=== PATIENT | male | born 1975 | race Hispanic/Latino ===

== ENCOUNTER 2019-09-21 17:20 | Emergency (ER) | payer OTHER, SELFPAY ==
[2019-09-21 17:30] VITALS: BP 155/88; PULSE 72; RESP 16; TEMP 36.3; O2SAT 100
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
== END 2019-09-21 18:24 | disposition home or self-care (01) ==
PROVIDERS: Emergency Provider Nurse Practitioner
DX: S05.02XA Injury of conjunctiva and corneal abrasion without foreign body, left eye, initial encounter (principal); X58.XXXA Exposure to other specified factors, initial encounter
CPT/HCPCS: 99203; A9270; G0463

== ENCOUNTER 2021-05-08 16:28 | Emergency (ER) | payer OTHER, SELFPAY ==
--- NOTE | ~2021-05-08 | US_ITS ---
US scrotum doppler INDICATION: Left testicular pain and swelling TECHNIQUE: Testicular sonogram utilizing grayscale and color Doppler FINDINGS: The testes are normal in size and appearance. No focal lesions are seen. The right testes measures 4.2 x 2.5 x 3.2 cm centimeters, and the left testis measures 4.7 x 2.8 x 3.5 cm cm. There is normal vascular flow to both testes. The right and left epididymides appear normal. There is no varicocele or hydrocele. IMPRESSION: 1. NORMAL TESTICULAR ULTRASOUND. Reviewed, dictated and finalized at location A.
[2021-05-08 17:06] VITALS: BP 136/95; PULSE 84; RESP 16; TEMP 37.1; O2SAT 97
--- NOTE | 2021-05-08 17:25 | ED.MALEGU ---
HPI - Male Genitourinary General Chief complaint: Urogenital-Male Stated complaint: enlarged testicle Time Seen by Provider: 05/08/21 17:14 Source: patient Mode of arrival: ambulatory Limitations: no limitations History of Present Illness HPI Narrative: Patient is a 45-year-old male complaining of left testicular swelling started last night. Patient denies any pain but states that when he palpates it he does have some mild pain. Patient denies any redness in the area. Patient denies any injury to the area. Patient denies any penile pain or discharge. Patient denies any urinary symptoms. Related Data Allergies Allergy/AdvReac Type Severity Reaction Status Date / Time Bumble Bee Allergy Anaphylactic Uncoded 05/26/12 11:55 Shock Review of Systems Review of Systems: All systems reviewed & are unremarkable except as noted in HPI and below Constitutional: Constitutional: Reports as per HPI Eyes: Eyes: Denies blurry vision, Denies change in vision and Denies loss of vision ENT: Denies dizziness, Denies ear discharge, Denies headache(s), Denies lip swelling, Denies epistaxis, Denies nasal congestion, Denies neck pain, Denies throat swelling and Denies tongue swelling Cardiovascular: Cardiovascular: Denies chest pain, Denies chest pain at rest, Denies chest pain with activity, Denies diaphoresis, Denies rapid heart rate, Denies edema, Denies irregular heart rhythm, Denies lightheadedness, Denies palpitations, Denies dyspnea and Denies dyspnea on exertion Respiratory: Respiratory: Denies chest congestion, Denies cough, Denies hemoptysis, Denies dyspnea and Denies dyspnea on exertion Gastrointestinal: Gastrointestinal: Denies abdominal pain, Denies melena, Denies hematochezia, Denies diarrhea, Denies nausea, Denies vomiting and Denies hematemesis Musculoskeletal: Musculoskeletal: Denies abnormal gait, Denies deformity, Denies joint swelling, Denies limited range of motion, Denies neck pain and Denies numbness Neurologic: Denies Abnormal speech present, Denies abnormal gait, Denies confusion, Denies dizziness, Denies headache(s), Denies focal weakness, Denies loss of vision, Denies numbness, Denies Other visual disturbances, Denies Sensory deficit (Neuro) and Denies weakness Psychiatric: Psychiatric: Denies confusion, Denies depression, Denies auditory hallucinations, Denies homicidal ideation and Denies suicidal ideation Endocrine: Endocrine: Denies cold intolerance, Denies excessive sweating, Denies fatigue, Denies heat intolerance and Denies palpitations Hematologic/Lymphatic: Hematologic/Lymphatic: Denies easy bleeding and Denies easy bruising Allergic/Immunologic: Allergic/Immunologic: Denies lip swelling, Denies throat swelling and Denies tongue swelling PMFSH Comments Past medical history: None Family history: None Social history: Non-smoker no EtOH or drug use Exam Const: General: cooperative, healthy appearing, comfortable, no acute distress, well developed, alert and awake; No confusion Orientation/consciousness: oriented to person, oriented to place, oriented to time, patient oriented x3 and No confusion Limitations: no limitations HENMT: Head: normal to inspection, normocephalic and atraumatic Ears: hearing grossly normal bilaterally, TM normal on the right and TM normal on the left General nose exam: Normal external nose present, Normal nares present and No nasal discharge present Face and sinus: normal facial exam Mouth: Yes Normal oral and palatal mucosa present, Yes lip normal, Yes tongue normal and Yes oropharynx normal Throat: posterior oropharynx normal, tonsils normal and uvula midline Eyes: General: appearance normal, both eyes and all related structures Pupils: Equal, round and reactive pupils present EOM: EOMs intact bilaterally Neck: Neck: normal visual inspection, full ROM, no lymphadenopathy and no meningeal signs Chest: Chest palpation & inspection: normal inspection of the chest Resp: Effort
[2021-05-08 20:02] LABS: Add Urine Microscopic? NO; Appearance Urine Clear (Clear); Bilirubin Urine Negative (Negative); Blood Urine Negative (Negative); Color Urine Yellow (Yellow); Glucose Urine UA Negative (Negative); Ketones Urine Negative (Negative); Leukocyte Esterase Ur Negative LEU/UL (Negative); Nitrate Urine Negative (Negative); Protein Urine Negative (Negative); Urobilinogen Urine Negative mg/dL (<2.0)
[2021-05-08 20:06] VITALS: BP 132/78; PULSE 78; RESP 18; O2SAT 99
== END 2021-05-08 20:09 | disposition home or self-care (01) ==
PROVIDERS: Emergency Provider Emergency Medicine
DX: N50.89 Other specified disorders of the male genital organs (principal); N50.812 Left testicular pain
CPT/HCPCS: 76870; 81003; 93976; 99284

== ENCOUNTER 2022-12-03 13:33 | Emergency (ER) | payer OTHER, SELFPAY ==
[2022-12-03 13:37] VITALS: BP 131/79; PULSE 81; RESP 18; TEMP 36.9; O2SAT 100
[2022-12-03 15:51] VITALS: BP 146/92; PULSE 73; RESP 15; TEMP 36.5; O2SAT 99
--- NOTE | 2022-12-03 17:22 | PC.NURSE ---
Pt to the intake desk and states that he is going to leave. Pt ambulated to the exit without difficulty
== END 2022-12-03 17:22 | disposition left against medical advice (07) ==
LOC: ANHED 17:27
DX: K62.5 Hemorrhage of anus and rectum (principal)
CPT/HCPCS: 99199

== ENCOUNTER 2025-06-09 19:03 | Emergency (ER) | payer OTHER, SELFPAY ==
--- NOTE | ~2025-06-09 | XR_ITS ---
EXAMINATION: XR hand LT min 3V DATE: 06/09/2025 19:47 INDICATION: Cough length, attention thumb and third digit. TECHNIQUE: 4 views were obtained. COMPARISON: None. FINDINGS: No acute fracture. No radiopaque foreign objects are seen. Soft tissue swelling of the thumb and around the middle phalanx of the third finger are noted. IMPRESSION: 1. No acute fracture. Soft tissue changes as described above. Reviewed, dictated and finalized at location T. [employer]IC[employer]
[2025-06-09 19:08] VITALS: BP 136/89; PULSE 83; RESP 18; TEMP 36.8; O2SAT 98
--- NOTE | 2025-06-09 19:30 | ED_ITS ---
HPI - Animal Bite General Chief Complaint: Animal Bite Stated Complaint: dog bite - left hand Time Seen by Provider: 06/09/25 19:16 History of Present Illness HPI narrative: Patient is a 49-year-old male who presents to the ER after sustaining a dog bite to his left hand. He reports the incident happened approximately 30 minutes prior to arrival. Patient reports animal control is involved, they are going to test the dog and get back to patient regarding results. He is unsure when he had his last tetanus vaccine. Patient denies any other medical history relevant to this ER visit. He denies any decreased range of motion, purulence drainage from the site, or wrist pain. Related Data Allergies Allergy/AdvReac Type Severity Reaction Status Date / Time Bumble Bee Allergy Anaphylactic Uncoded 05/26/12 11:55 Shock Review of Systems Review of Systems: All systems reviewed & are unremarkable except as noted in HPI and below Exam Narrative: GENERAL: Well appearing, well-nourished, non-toxic, in no acute distress. HEAD: Normocephalic, atraumatic. NECK: Supple. No adenopathy, no masses. RESPIRATORY: Airway patent, respirations nonlabored. Clear to auscultation bilaterally, no rales, rhonchi, wheezing. CARDIOVASCULAR: Regular rate and rhythm without murmurs, rubs, or gallops. Peripheral pulses 2+ and equal bilaterally. ABDOMINAL: Soft, nontender, nondistended, no hepatosplenomegaly. Normoactive BS. MUSCULOSKELETAL: Moves all extremities. Strength/ROM intact without gross deformities. SKIN: Warm, dry, normal color. No rashes. Puncture hernandez to Gerber left thumb around PIP joint, deep puncture wound 3rd digit mostly palmar side, bleeding controlled, both sites oozing NEURO: A&O X3. Speech clear. Cranial nerves II-XII intact. No ataxic movements. PSYCHIATRIC: Appropriate mood and affect. Normal interaction. Course Vital Signs Vital signs: Vital Signs Temperature 36.8 C 06/09/25 19:08 Pulse Rate 83 06/09/25 19:08 Respiratory Rate 18 06/09/25 19:08 Blood Pressure 136/89 06/09/25 19:08 Pulse Oximetry 98 06/09/25 19:08 Oxygen Delivery Room Air 06/09/25 19:08 Temperature 36.8 C 06/09/25 19:08 Pulse Rate 83 06/09/25 19:08 Respiratory Rate 18 06/09/25 19:08 Blood Pressure 136/89 06/09/25 19:08 Pulse Oximetry 98 06/09/25 19:08 Oxygen Delivery Room Air 06/09/25 19:08 MDM - Animal Bite MDM Narrative Medical decision making narrative: Patient is a 49-year-old male who presents to the ER after sustaining a dog bite to his left hand. He reports the incident happened approximately 30 minutes prior to arrival. Patient reports animal control is involved, they are going to test the dog and get back to patient regarding results. He is unsure when he had his last tetanus vaccine. Patient denies any other medical history relevant to this ER visit. He denies any decreased range of motion, purulence drainage from the site, or wrist pain. Imaging Ordered: Left hand x-ray Medications Ordered: Augmentin p.o., Tdap IM Results: Pt's x-ray indicates No acute fracture. No radiopaque foreign objects are seen. Soft tissue swelling of the thumb and around the middle phalanx of the third finger are noted. Diagnosis: animal bite Patient Education/Shared MDM: Results of imaging shared with patient. He continues to deny need for pain medication. Patient strongly advised to follow- up with his PCP in the next 2-3 days to ensure he is healing. He will be discharged home with a prescription for Augmentin. Strict return precautions provided. Patient verbalized understanding and is in agreement with plan. Vital signs stable at time of discharge. All questions answered. Differential Diagnosis Differential diagnosis: Likely bite by animal, dog bite and rabies contact Imaging Data Attestation: I personally reviewed and interpreted this imaging study as follow s: Radiologist's impression: Impressions Hand X-Ray 06/09/25 19:58 IMPRESSION: 1. No acute fracture. Soft tissue changes as described above. Discharge Plan Discharge Clinical Impression: Dog bite, Bite by animal Patient Disposition: Home Condition: Stable Instructions: Antibiotic Form, Animal Bite (ED) Additional Instructions: Please return to the ER with any worsening symptoms. Follow-up with primary care provider in the next 2-3 days for wound re-evaluation. Take all medications as prescribed, including regularly scheduled medications. Complete your full dose of antibiotics. Patient Language: Amharic Prescriptions: New amoxicillin-pot clavulanate 875-125 mg tablet 1 tablet PO Q12H Qty: 20 0RF No Action polymyxin B sulf-trimethoprim [Polytrim] 10,000 unit- 1 mg/mL drops 1 drop EACH EYE Q3H 7 Days Qty: 10 0RF Rx Instructions: while awake; do not exceed 6 doses in 24 hours Follow-up/Referrals: Vanessa Olson MD [Physician, Family Practice] Referral Note: primary care provider PHYSICIAN,ADVANCED NURSING PROFESSOR [Primary Care Provider, Internal Medicine] Stand Alone Forms: Work/School Release IP Time of Disposition: 21:24
[2025-06-09] MEDS: TETANUS,DIPHTHERIA,AC PERTUSSIS ADULT (0.5 ML) BOOSTRIX IM (20:50)
--- NOTE | 2025-06-09 21:03 | PC.NURSE ---
patient L middle finger cleansed by tech. triple antibiotic applied, 2x2 gauze with finger splint and coban applied. CDI.
== END 2025-06-09 21:37 | disposition home or self-care (01) ==
PROVIDERS: Emergency Provider Registered Nurse
DX: S61.452A Open bite of left hand, initial encounter (principal); Z23 Encounter for immunization; W54.0XXA Bitten by dog, initial encounter
CPT/HCPCS: 73130; 90471; 90715; 99283; A9270